=== PATIENT | male | born 1965 | race American Indian/Alaskan Native ===

== ENCOUNTER 2016-11-04 12:35 | Outpatient (CLI) | payer MEDICARE ==
--- NOTE | 2016-11-04 15:08 | Cat Scan Report ---
CT ABDOMEN AND PELVIS WITHOUT CONTRAST INDICATION: Hematuria. COMPARISON: None similar at this institution. FINDINGS: Noncontrast abdomen and pelvis CT performed. LUNG BASES: Nonspecific distal esophageal wall prominence/thickening, not excluded for gastroesophageal reflux and/or hiatal hernia, amongst others. ABDOMEN: Please note that sensitivity to detect small visceral lesions is limited due to the absence of intravenous or oral contrast. Grossly unremarkable unenhanced liver, spleen, gallbladder, pancreas, adrenals, non-aneurysmal abdominal aorta, IVC and kidneys. No radiopaque renal calculi with presumed prominent column of Aaron on the left as on axial image 55, series 2, amongst others. Nonaneurysmal abdominal aorta with atherosclerotic aortoiliac calcifications. No ascites or definite significant adenopathy. Nonopacified GI tract evaluation limited, though grossly nonobstructive. Normal appendix. Moderate colonic stool/possible constipation. Tiny fat-containing umbilical hernia. PELVIS: Mildly enlarged prostate may be correlated for clinically and with PSA. Pelvic vascular calcifications noted, including tortuous, slightly aneurysmal iliac arteries bilaterally measuring 1.6 cm as on axial image 107, series 2. Grossly unremarkable non-opacified urinary bladder and the rectosigmoid. No free fluid or significant adenopathy. Advanced mid to lower lumbar degenerative changes noted, including severe disc narrowing with mild endplate irregularities, vacuum disc phenomenon, spurring and adjacent sclerosis, greatest at L3-L4, as described. Mild multilevel lower thoracic spine degenerative spurring also seen. Slight dextroscoliosis apex about L3-L4 as well. Bilateral hip degenerative changes with multiple subchondral cysts; orthopedic correlation for possible femoral acetabular impingement may be obtained in an appropriate setting. CONCLUSION: 1. No radiopaque renal calculi, though prostate may be mildly enlarged on this limited, unenhanced exam. Please correlate. 2. Various other incidental findings, as above. Thank you for the opportunity to participate in this patient's care.
== END 2016-11-04 12:36 | disposition home or self-care (01) ==
LOC: CT 12:35
PROVIDERS: ATTEND Urology
DX: N40.0 Benign prostatic hyperplasia without lower urinary tract symptoms (principal); R31.29 Other microscopic hematuria; I70.0 Atherosclerosis of aorta; K42.9 Umbilical hernia without obstruction or gangrene; M47.896 Other spondylosis, lumbar region; M41.86 Other forms of scoliosis, lumbar region; M16.0 Bilateral primary osteoarthritis of hip; M25.852 Other specified joint disorders, left hip; M25.851 Other specified joint disorders, right hip
CPT/HCPCS: 74176

== ENCOUNTER 2018-02-19 06:59 | Emergency (ER) | payer MEDICARE ==
[2018-02-19] MEDS ORDERED: TYLENOL #3 PO ONE (07:55)
[2018-02-19] MEDS ORDERED: MOTRIN PO ONE (07:55)
--- NOTE | 2018-02-19 08:23 | XRay Report ---
FINAL REPORT EXAM: XR HIP 2-3V RT HISTORY: right hip pain COMPARISONS: None. FINDINGS: AP pelvis with lateral view of the right hip Mild bilateral hip osteoarthrosis. Prominent femoral head neck junction osseous bumps are present bilaterally. No acute fracture. IMPRESSION: No acute finding. Consider additional imaging for worsening/persistent symptoms. Mild bilateral hip osteoarthrosis with prominent femoral head neck junction osseous bumps, which may predispose the patient to impingement symptoms.
--- NOTE | 2018-02-19 10:13 | Emergency Department Report ---
ED Lower Extremity HPI - General Chief Complaint: Extremity Injury, Lower Stated Complaint: RIGHT LEG PAIN Time Seen by Provider: 02/19/18 07:55 Source: patient Mode of arrival: Wheelchair Limitations: No Limitations - History of Present Illness Initial Comments: This is a 52-year-old male nontoxic, well nourished in appearance, no acute signs of distress presents to the ED with c/o of right hip pain 1 day. Patient stated that he wake up this morning barley can put any weight. Patient stated pain radiates to right lower leg. Patient denies any trauma. Patient denies any numbness, tingling, fever, chills, nausea, vomiting, chest pain, shortness of breath, headache, stiff neck. Patient denies any facial drooping. Patient denies any joint swelling or joint redness. Patient denies decreased range of motion. Patient stated has decreased gait due to pain. Patient denies any allergies. 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 MD Complaint: hip injury -: This morning Injury: Hip: Right, Leg: Right Place: home Severity: mild Severity scale (0 -10): 3 Improves With: immobilization Worsens With: weight bearing, movement, palpation Associated Symptoms: able to partially bear weight, ambulatory. denies: snap/ pop sensation, swelling, numbness, tingling, unable to bear weight - Related Data Home Medications Medication Instructions Recorded Confirmed Last Taken AtorvaSTATin [Lipitor] 20 mg PO DAILY 06/21/16 06/21/16 06/21/16 Carvedilol [Coreg] 3.125 mg PO BID 06/21/16 06/21/16 06/21/16 Insulin Glargine,Hum.rec.anlog 40 units SQ AMHY 06/21/16 06/21/16 06/21/16 [Lantus Solostar] Losartan [Cozaar] 1 tab PO DAILY 06/21/16 06/21/16 06/21/16 Metformin HCl [Fortamet ER] 1,000 mg PO BID 06/21/16 06/21/16 06/21/16 amLODIPine [Norvasc] 10 mg PO DAILY 06/21/16 06/21/16 06/21/16 glyBURIDE [Diabeta] 2.5 mg PO DAILY 12/19/16 12/19/16 12/19/16 hydroCHLOROthiazide [HCTZ] 25 mg PO QDAY 06/21/16 06/21/16 06/21/16 Previous Rx's Medication Instructions Recorded Last Taken Type Ibuprofen [Motrin] 600 mg PO Q8H PRN #30 tablet 02/19/18 Unknown Rx Allergies Allergy/AdvReac Type Severity Reaction Status Date / Time No Known Allergies Allergy Verified 02/19/18 07:19 ED Review of Systems ROS: Stated complaint: RIGHT LEG PAIN Other details as noted in HPI Constitutional: denies: chills, fever Eyes: denies: eye pain, eye discharge, vision change ENT: denies: ear pain, throat pain Respiratory: denies: cough, shortness of breath, wheezing Cardiovascular: denies: chest pain, palpitations Endocrine: no symptoms reported Gastrointestinal: denies: abdominal pain, nausea, diarrhea Genitourinary: denies: urgency, dysuria Musculoskeletal: arthralgia. denies: back pain, joint swelling Skin: denies: rash, lesions Neurological: denies: headache, weakness, paresthesias Psychiatric: denies: anxiety, depression Hematological/Lymphatic: denies: easy bleeding, easy bruising ED Past Medical Hx - Past Medical History Hx Hypertension: Yes Hx CVA: Yes (right side weakness) Hx Diabetes: Yes Hx Tuberculosis: No - Social History Smoking Status: Current Every Day Smoker Substance Use Type: None - Medications Home Medications: Home Medications Medication Instructions Recorded Confirmed Last Taken Type AtorvaSTATin [Lipitor] 20 mg PO DAILY 06/21/16 06/21/16 06/21/16 History Carvedilol [Coreg] 3.125 mg PO BID 06/21/16 06/21/16 06/21/16 History Insulin Glargine,Hum.rec.anlog 40 units SQ AMHY 06/21/16 06/21/16 06/21/16 History [Lantus Solostar] Losartan [Cozaar] 1 tab PO DAILY 06/21/16 06/21/16 06/21/16 History Metformin HCl [Fortamet ER] 1,000 mg PO BID 06/21/16 06/21/16 06/21/16 History amLODIPine [Norvasc] 10 mg PO DAILY 06/21/16 06/21/16 06/21/16 History glyBURIDE [Diabeta] 2.5 mg PO DAILY 06/21/16 06/21/16 06/21/16 History hydroCHLOROthiazide [HCTZ] 25 mg PO QDAY 06/21/16 06/21/16 06/21/16 History Ibuprofen [Motrin] 600 mg PO Q8H PRN #30 tablet 02/19/18 Unknown Rx ED Physical Exam - General Limitations: No Limitations General appearance: alert, in no apparent distress - Head Head exam: Present: atraumatic, normocephalic - Eye Eye exam: Present: normal appearance Pupils: Present: normal accommodation - ENT ENT exam: Present: normal exam, mucous membranes moist - Neck Neck exam: Present: normal inspection, full ROM. Absent: tenderness, meningismus, lymphadenopathy - Respiratory Respiratory exam: Present: normal lung sounds bilaterally. Absent: respiratory distress, wheezes, rales, rhonchi, stridor, chest wall tenderness, accessory muscle use, decreased breath sounds, prolonged expiratory - Cardiovascular Cardiovascular Exam: Present: regular rate, normal rhythm, normal heart sounds. Absent: bradycardia, tachycardia, irregular rhythm, systolic murmur, diastolic murmur, rubs, gallop - GI/Abdominal GI/Abdominal exam: Present: soft, normal bowel sounds. Absent: distended, tenderness, guarding, rebound, rigid, diminished bowel sounds - Rectal Rectal exam: Present: deferred - Extremities Exam Extremities exam: Present: normal inspection, full ROM, normal capillary refill. Absent: tenderness, joint swelling - Expanded Lower Extremity Exam Right Hip exam: Present: normal inspection, full ROM, external rotation, internal rotation, pelvic stability. Absent: tenderness, swelling, abrasion, laceration , ecchymosis, deformity, crepidus, dislocation, erythema, shortening Upper Leg exam: Present: normal inspection, full ROM. Absent: tenderness, swelling Knee exam: Present: normal inspection, full ROM. Absent: tenderness, swelling Lower Leg exam: Present: normal inspection, full ROM. Absent: tenderness, swelling Ankle exam: Present: normal inspection, full ROM. Absent: tenderness, swelling Foot/Toe exam: Present: normal inspection, full ROM. Absent: tenderness, swelling Neuro vascular tendon exam: Present: no vascular compromise. Absent: pulse deficit, abnormal cap refill, motor deficit, sensory deficit, tendon deficit, extremity cold to touch, pallor, abnormal 2-point discrimination, decreased fine /light touch, foot drop, peroneal nerve deficit, significant pain with passive ROM of distal joint Gait: Positive: observed and limited by pain - Back Exam Back exam: Present: normal inspection, full ROM. Absent: tenderness, CVA tenderness (R), CVA tenderness (L), muscle spasm, paraspinal tenderness, vertebral tenderness, rash noted - Neurological Exam Neurological exam: Present: alert, oriented X3, CN II-XII intact, normal gait - Expanded Neurological Exam Expanded Patient oriented to: Present: person, place, time Cranial nerves: EOM's Intact: Normal, Gag Reflex: Normal, Facial Sensation: Normal Cerebellar function: Finger to Nose: Normal Upper motor neuron: Pronator Drift: Normal, Sensory Extinction: Normal Sensory exam: Upper Extremity Light Touch: Normal, Upper Extremity Pin Prick: Normal, Upper Extremity Temperature: Normal, UE 2 Point Discrimination: Normal, Lower Extremity Light Touch: Normal, Lower Extremity Pin Prick: Normal, Lower Extremity Temperature: Normal, LE 2 Point Discrimination: Normal Motor strength exam: RUE: 3, LUE: 5, RLE: 3, LLE: 5 Best Eye Response ([place]): (4) open spontaneously Best Motor Response ([place]): (6) obeys commands Best Verbal Response ([place]ligio): (5) oriented [place] Total: 15 - Psychiatric Psychiatric exam: Present: normal affect, normal mood - Skin Skin exam: Present: warm, dry, intact, normal color. Absent: rash ED Course Vital Signs 02/19/18 02/19/18 02/19/18 07:19 08:15 09:15 Temperature 98.9 F Pulse Rate 87 Respiratory 18 18 20 Rate Blood Pressure 162/99 O2 Sat by Pulse 100 Oximetry - Reevaluation(s) Reevaluation #1: 02/19/18 10:33 Patient is speaking in full sentences with no signs of distress noted. ED Lower Extremity MDM - Medical Decision Making This is a 52-year-old male that presents with right hip strain. Patient is stable and was examined by me. I referred patient to an orthopedic doctor for further evaluation for possible MRI. X-ray has been obtained and dictated by the radiologist. US doppler has been obtained with negative for DVT/SVT. Patient is notified of the x-ray/US dopper report with noted by the patient. Patient does have normal gait with no tenderness and no joint swelling. No ecchymosis. no joint redness or swelling. Not warm to touch. No signs of cellulites present. Patient was instructed to RICE therapy. Patient received Motrin and Tylenol with Codeing for pain which stated sympoms has resovled and subsided. Patient was able to walk normally during post exam. Patient is discharged with Motrin. At time of discharge, the patient does not seem toxic or ill in appearance. No acute signs of distress noted. Patient agrees to discharge treatment plan of care. No further questions noted by the patient. Critical care attestation.: If time is entered above; I have spent that time in minutes in the direct care of this critically ill patient, excluding procedure time. ED Disposition Clinical Impression: Strain of right hip Qualifiers: Encounter type: initial encounter Qualified Code(s): S76.011A - Strain of muscle, fascia and tendon of right hip, initial encounter Disposition: TO HOME OR SELFCARE Is pt being admited?: No Does the pt Need Aspirin: No Condition: Stable Instructions: Arthralgia (ED), RICE Therapy (ED), Ibuprofen (By mouth) Additional Instructions: Follow-up with a primary care/orthopedic doctor in 3-5 days or if symptoms worsen and continue return to emergency room as soon as possible. Prescriptions: Ibuprofen [Motrin] 600 mg PO Q8H PRN #30 tablet PRN Reason: Pain Referrals: [facility]– [place]Outside] - 3-5 Days [facility] [Outside] - 3-5 Days PRIMARY MD YAKELIN [Primary Care Provider] - 3-5 Days PAULA OLMEDO MD [Staff Physician] - 3-5 Days RAINA ESTRADA MD [Staff Physician] - 3-5 Days Forms: Work/School Release Form(ED)
[2018-02-19 11:41] VITALS: BP 138/83
== END 2018-02-19 11:42 | disposition home or self-care (01) ==
LOC: ED 06:59
DX: S76.011A Strain of muscle, fascia and tendon of right hip, initial encounter (principal); I10 Essential (primary) hypertension; E11.9 Type 2 diabetes mellitus without complications; F17.200 Nicotine dependence, unspecified, uncomplicated; Z79.4 Long term (current) use of insulin; Z86.73 Personal history of transient ischemic attack (TIA), and cerebral infarction without residual deficits; Z79.899 Other long term (current) drug therapy; X50.1XXA Overexertion from prolonged static or awkward postures, initial encounter; Y93.89 Activity, other specified; Y99.8 Other external cause status; Y92.098 Other place in other non-institutional residence as the place of occurrence of the external cause
CPT/HCPCS: 82962